=== PATIENT | female | born 1945 | race African-American/Black ===

== ENCOUNTER 2018-08-16 17:35 | Inpatient (IN) | payer OTHER ==
[~2018-08-16] VITALS: Ht 157.5 cm; Wt 74.4 kg
[2018-08-16 19:39] LABS: CLARITY URINE CLEAR (CLEAR); COLOR URINE YELLOW (YELLOW); KETONES URINE NEGATIVE (NEGATIVE); LEUKOCYTE ESTERASE URINE TRACE (NEGATIVE); NITRITE URINE NEGATIVE (NEGATIVE); OCCULT BLOOD URINE NEGATIVE (NEGATIVE); PROTEIN URINE NEGATIVE (NEGATIVE); SPECIFIC GRAVITY URINE 1.017 (1.005-1.030)
[2018-08-16 19:52] LABS: BASOPHILS % 0.9 % (0.0-2.0); EOSINOPHILS % 0.9 % (0.0-5.0); HEMOGLOBIN. 12.8 g/dL (12.0-16.0); LYMPHOCYTES % 20.8 % (20.0-50.0); MEAN CORPUSCULAR HEMOGLOBIN 28.4 pg (28.0-32.0); MEAN PLATELET VOLUME 11.1 fl (7.4-10.4); MONOCYTES % 8.2 % (2.0-8.0); NEUTROPHILS % 69.2 % (40.0-76.0); PLATELET 193 x1000/uL (130-400); RED BLOOD CELL COUNT 4.49 mill/uL (4.2-5.4)
[2018-08-16 19:56] LABS: CHLORIDE 101 mEq/L (98-107)
[2018-08-16 19:59] LABS: PROTHROMBIN TIME 9.7 sec (9.1-11.1)
[2018-08-16] MEDS ORDERED: MORPHINE SULFATE 4 MG/ML CPJ (NOT FOR IM USE) IV ONE (20:15)
[2018-08-16] MEDS ORDERED: GUAIFENESIN 200MG/10ML SUGAR FREE UDC PO PRN (20:30)
[2018-08-16] MEDS ORDERED: ONDANSETRON HCL 4MG/2ML INJ IV PRN (20:30)
[2018-08-16] MEDS ORDERED: MAGNESIUM/ALUMINUM HYDROXIDE/SIMETHICONE 30ML UDC PO PRN (20:30)
[2018-08-16] MEDS ORDERED: ACETAMINOPHEN 325MG TABLET PO PRN (20:30)
[2018-08-16] MEDS ORDERED: DOCUSATE SODIUM 100MG CAPSULE PO PRN (20:30)
[2018-08-16] MEDS ORDERED: ACETAMINOPHEN 325MG TABLET PO ONE (20:30)
[2018-08-16] MEDS ORDERED: CLONIDINE 0.1MG TABLET PO PRN (20:30)
[2018-08-16] MEDS ORDERED: DIPHENHYDRAMINE 50MG/ML VIAL IV PRN (20:30)
[2018-08-16] MEDS ORDERED: TRAMADOL 50MG TABLET PO PRN (20:30)
[2018-08-16] MEDS ORDERED: IPRATROPIUM/ALBUTEROL 0.5-3(2.5)MG/3ML NEB INH PRN (20:30)
[2018-08-16] MEDS ORDERED: LORAZEPAM 0.5MG TABLET PO PRN (20:30)
[2018-08-16] MEDS ORDERED: HYDRALAZINE HCL 50MG TABLET PO ONE (20:30)
[2018-08-16] MEDS ORDERED: NA PHOS,M-B/NA PHOS,DI-BA ENEMA 118ML PR PRN (21:00)
[2018-08-16] MEDS ORDERED: ZOLPIDEM TARTRATE 5MG TABLET PO PRN (21:00)
[2018-08-16] MEDS ORDERED: MORPHINE SULFATE 4 MG/ML CPJ (NOT FOR IM USE) IV PRN (21:01)
[2018-08-16 22:22] VITALS: BP 146/73
[2018-08-16] MEDS: FAMOTIDINE 20MG TABLET PO SCH (23:27)
[2018-08-16] MEDS: ASCORBIC ACID 500 MG TABLET PO SCH (23:27)
[2018-08-16] MEDS: NITROGLYCERIN 0.4MG TABLET SL SL PRN (23:27)
[2018-08-17 00:02] VITALS: BP 157/60
[2018-08-17] MEDS ORDERED: FLUO-124 MT (00:24)
[2018-08-17] MEDS ORDERED: DULO20CA17 MT (00:24)
[2018-08-17] MEDS ORDERED: ISOS20TA57 PO (00:24)
[2018-08-17] MEDS ORDERED: ASPI-1158 MT (00:24)
[2018-08-17] MEDS ORDERED: ATOR40TA70 MT (00:24)
[2018-08-17] MEDS ORDERED: ATEN50TA MT (00:24)
[2018-08-17] MEDS ORDERED: MELO-104 MT (00:24)
[2018-08-17] MEDS ORDERED: LORA1TAB MT (00:24)
[2018-08-17] MEDS ORDERED: AMLO2.5T45 MT (00:24)
[2018-08-17] MEDS ORDERED: ONDA4TAB11 PO (00:24)
[2018-08-17] MEDS ORDERED: GABA-290 MT (00:24)
[2018-08-17] MEDS ORDERED: LEVOFLOXACIN 500MG PREMIX 100 ML IV NR (01:00)
[2018-08-17] MEDS: NITROGLYCERIN 0.4MG TABLET SL SL PRN (01:01)
[2018-08-17 01:15] VITALS: BP 177/75
[2018-08-17 02:35] LABS: CREATINE KINASE 64 IU/L (26-192)
[2018-08-17 02:36] LABS: CREATINE KINASE MB FRACTION < 1.0 ng/mL (0.5-3.6)
[2018-08-17 04:00] VITALS: BP 126/64
[2018-08-17 06:46] LABS: CREATINE KINASE 61 IU/L (26-192)
[2018-08-17 06:47] LABS: CREATINE KINASE MB FRACTION < 1.0 ng/mL (0.5-3.6)
[2018-08-17 07:56] LABS: *AMPHETAMINES SCREEN URINE NEGATIVE (NEGATIVE); *BARBITURATES SCREEN URINE NEGATIVE (NEGATIVE); *BENZODIAZEPINES SCREEN URINE NEGATIVE (NEGATIVE); *COCAINE SCREEN URINE NEGATIVE (NEGATIVE); METHADONE URINE SCREEN NEGATIVE (NEGATIVE); OPIATES URINE SCREEN PRESUMTIVE POSITIVE (NEGATIVE)
[2018-08-17 07:57] LABS: CANNABINOID URINE SCREEN PRESUMTIVE POSITIVE (NEGATIVE); PHENCYCLIDINE URINE SCREEN NEGATIVE (NEGATIVE)
[2018-08-17] MEDS ORDERED: METOPROLOL TARTRATE 25MG TABLET PO SCH (09:00)
[2018-08-17] MEDS ORDERED: CEFTRIAXONE 1 G PREMIX 50 ML IV SCH ×2 (09:00)
[2018-08-17] MEDS ORDERED: ENOXAPARIN 40MG/0.4ML SYR SUBCUT SCH (09:00)
[2018-08-17] MEDS ORDERED: ASPIRIN 325MG EC TABLET PO SCH (09:00)
[2018-08-17] MEDS ORDERED: LISINOPRIL 20MG TABLET PO SCH (09:00)
[2018-08-17] MEDS: ASCORBIC ACID 500 MG TABLET PO SCH (10:11)
[2018-08-17] MEDS: FAMOTIDINE 20MG TABLET PO SCH (10:11)
[2018-08-17] MEDS ORDERED: KETOROLAC 15MG/ML VIAL IV PRN (10:45)
[2018-08-17 12:00] VITALS: BP 110/44
[2018-08-17 17:40] VITALS: BP 140/75
[2018-08-18] MEDS ORDERED: LEVOFLOXACIN 250MG PREMIX 50 ML IV SCH (01:00)
[2018-08-18] MEDS ORDERED: FAMOTIDINE 20MG TABLET PO SCH (09:00)
== END 2018-08-17 18:20 | disposition short-term general hospital (02) | DRG 872 ==
LOC: ER 17:35 → 6WST 20:24 → EDBEDREQSVC 20:25 → EDBEDREQTM 20:25 → EDBEDREQ 20:25 → ENRESERV 20:35
PROVIDERS: ADMIT Internal Medicine; ATTEND Internal Medicine
DX: A41.9 Sepsis, unspecified organism (principal); N39.0 Urinary tract infection, site not specified; I24.9 Acute ischemic heart disease, unspecified; I10 Essential (primary) hypertension; I25.10 Atherosclerotic heart disease of native coronary artery without angina pectoris; I25.2 Old myocardial infarction
CPT/HCPCS: 36415; 71045; 80053; 80061; 80305; 81003; 82550; 82553; 83036; 83605; 84145; 84484; 85025; 85610; 87040; 87086; 87804; 93005; 93970; 96374; 99291; J0696; J1650; J1885; J1956; J2270; J7050

== ENCOUNTER 2023-11-05 19:36 | Emergency (ER) | payer OTHER ==
[~2023-11-05] VITALS: Ht 167.6 cm; Wt 70.0 kg
[~2023-11-05 19:36] MED LIST: AMLO2.5T45 MT; ASPI-1406 MT; ATEN50TA MT; ATOR40TA70 MT; DULO20CA18 MT; FLUO20CA39 MT; GABA-290 MT; ISMO20 PO; LORA1TAB MT; MELO-104 MT; ONDA4TAB11 PO
[2023-11-05 19:38] VITALS: O2SAT 98
[2023-11-05] MEDS ORDERED: SODIUM CHLORIDE 0.9% 1,000 ML IV ONE (19:45)
[2023-11-05 22:06] LABS: EOSINOPHILS % 0.6 % (0.0-5.0); HEMATOCRIT. 38.1 % (36.0-48.0); HEMOGLOBIN. 11.8 g/dL (12.0-16.0); LYMPHOCYTES % 21.5 % (20.0-50.0); MEAN CORPUSCULAR HEMOGLOBIN 27.9 pg (28.0-32.0); MEAN CORPUSCULAR HGB CONC 30.9 g/dL (31.0-37.0); MEAN CORPUSCULAR VOLUME 90.1 fL (81.0-99.0); MEAN PLATELET VOLUME 10.9 fl (7.4-10.4); MONOCYTES % 6.7 % (2.0-8.0); NEUTROPHILS % 70.2 % (40.0-76.0); PLATELET 175 x1000/uL (130-400); RED BLOOD CELL COUNT 4.23 mill/uL (4.2-5.4); RED CELL DISTRIBUTION WIDTH 14.1 % (11.6-14.6)
[2023-11-05 22:16] LABS: PROTHROMBIN TIME 10.7 sec (9.6-11.0)
[2023-11-05 22:31] LABS: ALANINE AMINOTRANSFERASE < 7 IU/L (10-49); ALBUMIN 3.8 g/dL (3.2-4.8); ASPARTATE AMINOTRANSFERASE 13 IU/L (<34); BILIRUBIN TOTAL 0.5 mg/dL (0.1-1.0); CALCIUM 8.8 mg/dL (8.7-10.4); CARBON DIOXIDE 27 mEq/L (21-32); CHLORIDE 106 mEq/L (98-107); CREATININE 0.7 mg/dL (0.6-1.0); GLUCOSE 98 mg/dL (70-105); POTASSIUM 3.9 mEq/L (3.5-5.1); PROTEIN TOTAL 7.2 g/dL (6.0-8.3); SODIUM 140 mEq/L (136-145); UREA NITROGEN BLOOD 17 mg/dL (9-23)
[2023-11-05 22:38] LABS: TROPONIN I HIGH SENSITIVITY < 4 ng/L (3.0-34)
[2023-11-05 23:43] VITALS: BP 167/52; PULSE 62; RESP 20; TEMP 98.2
== END 2023-11-05 23:47 | disposition home or self-care (01) ==
LOC: ER 20:08
DX: I95.1 Orthostatic hypotension (principal)
CPT/HCPCS: 99285; 70450; 71045; 80053; 83880; 85025; 85610; 84484; 36415; 93005; J7030